=== PATIENT | female | born 1960 | race African-American/Black ===

== ENCOUNTER 2017-03-31 13:59 | Emergency (ER) | payer MEDICARE, MEDICAID ==
[~2017-03-31] VITALS: Ht 165.1 cm; Wt 81.6 kg
[2017-03-31] MEDS ORDERED: SODIUM CHLORIDE 0.9% 1,000 ML IV ONE (14:45)
[2017-03-31 15:11] LABS: Acetaminophen < 2.0 ug/mL (10-30); Anion Gap 8 (5-15); Aspartate Aminotransferase 15 U/L (15-37); BUN/Creatinine Ratio 21.5; Blood Urea Nitrogen 20 mg/dL (7-18); Calcium 9.4 mg/dL (8.5-10.1); Carbon Dioxide 24 mmol/L (21-32); Chloride 113 mmol/L (98-107); GFR African American 80 mL/min; GFR Non-African American 66 mL/min; Glucose 66 mg/dL (74-106); Potassium 3.6 mmol/L (3.5-5.1); Salicylate 6.2 mg/dL (2.8-20.0); Sodium 145 mmol/L (136-145)
[2017-03-31 15:14] LABS: Alkaline Phosphatase 59 U/L (45-117); Bilirubin, Total 0.2 mg/dL (0.2-1.0); Total Protein 7.4 g/dL (6.4-8.2)
[2017-03-31 15:17] VITALS: BP 135/62
[2017-03-31 15:25] LABS: Basophils # (auto) 0.1 uL; Basophils % (auto) 0.8 % (0.0-2.0); Eosinophils # (auto) 0.2 uL; Hematocrit 27.6 % (36.0-46.0); Hemoglobin 8.9 g/dL (12.2-16.2); Lymphocytes # (auto) 2.5 uL; Lymphocytes % (auto) 30.6 % (10.0-50.0); Mean Corpuscular Hemoglobin 24.2 pg (28.0-32.0); Mean Corpuscular Hgb Conc. 32.2 g/dL (32.0-36.0); Mean Corpuscular Volume 75.2 fL (80.0-100.0); Mean Platelet Volume 7.8 fL (6.9-10.8); Monocytes # (auto) 1.1 uL; Neutrophils # (auto) 4.3 uL; Neutrophils % (auto) 52.6 % (37.0-80.0); Nucleated Red Blood Cells % 0.1 %; Platelet Count (auto) 376 10^3/uL (140-450); Red Cell Distribution Width 19.3 % (11.8-14.3); White Blood Cell 8.2 10^3/uL (4.4-10.8)
[2017-03-31] MEDS ORDERED: ENOXAPARIN SOD 40 MG/0.4 ML SYRINGE SC ONE (15:29)
[2017-03-31] MEDS ORDERED: NITROGLYCERIN 0.4 MG SL TAB SL PRN (15:30)
[2017-03-31] MEDS ORDERED: MORPHINE SULF INJ 2 MG/ML SYRINGE 1ML IV PRN ×2 (15:30)
[2017-03-31] MEDS ORDERED: ASPirin 81 mg TAB PO ONE (15:30)
[2017-03-31] MEDS ORDERED: TEMAZEPAM 15 MG CAP PO PRN (15:30)
[2017-03-31] MEDS ORDERED: LACTULOSE 20Gm/30ML SOLN PO PRN ×2 (15:30)
[2017-03-31] MEDS ORDERED: ACETAMINOPHEN 500 MG TAB PO PRN (15:30)
[2017-03-31] MEDS ORDERED: LORazepam 0.5 MG TAB PO PRN (15:30)
[2017-03-31] MEDS ORDERED: HYDROcodone-ACET 5/325MG TAB PO PRN (15:30)
[2017-03-31] MEDS ORDERED: PROMETHAZINE HCL 25 MG/ML 1ML IV PRN (15:30)
[2017-03-31] MEDS ORDERED: HALOPERIDOL LACTATE 5 MG/ML INJ VIAL IM ONE (15:45)
[2017-03-31 16:10] LABS: Temperature: 22.7 C (20.0-25.0)
[2017-03-31 16:13] LABS: Urine Bilirubin Negative (Negative); Urine Blood Negative /uL (Negative); Urine Color Yellow (Yellow); Urine Glucose Normal (Normal); Urine Ketone Negative (Negative); Urine Nitrite Negative (Negative); Urine RBC <1 /hpf (0 - 4); Urine Squamous Epithelial Cell FEW /hpf (<5); Urine Urobilinogen Normal (Negative); Urine pH 7.5 (5.0-8.0)
[2017-03-31 17:19] LABS: Anisocytosis Slight; Platelet Estimate Adequate
[2017-03-31 17:20] LABS: Hypochromia Moderate; Microcytosis Moderate; Poikilocytosis Slight
[2017-03-31] MEDS ORDERED: SODIUM CHLOR 0.9% PF (SALINE LOCK) 10ML VIAL IV SCH (22:00)
[2017-03-31] MEDS ORDERED: ATORVASTATIN 20 MG TAB PO SCH (22:00)
[2017-04-01] MEDS ORDERED: ENOXAPARIN SOD 40 MG/0.4 ML SYRINGE SC SCH (10:00)
[2017-04-01] MEDS ORDERED: ASPirin 81 mg TAB PO SCH (10:00)
== END 2017-03-31 16:43 | disposition left against medical advice (07) ==
LOC: EDBD 13:59 → ER 13:59
DX: T43.211A Poisoning by selective serotonin and norepinephrine reuptake inhibitors, accidental (unintentional), initial encounter (principal); T42.4X1A Poisoning by benzodiazepines, accidental (unintentional), initial encounter; T43.021A Poisoning by tetracyclic antidepressants, accidental (unintentional), initial encounter; T43.591A Poisoning by other antipsychotics and neuroleptics, accidental (unintentional), initial encounter; I10 Essential (primary) hypertension; R41.82 Altered mental status, unspecified; Y92.89 Other specified places as the place of occurrence of the external cause
CPT/HCPCS: 36415; 51702; 70450; 71010; 80053; 80307; 80320; 80329; 81001; 82550; 82607; 82746; 84443; 85025; 85652; 93005; 94761; 96360; 96372; 99285; J1630; J7030

== ENCOUNTER → 2017-08-22 | Outpatient (CLI) | payer MEDICARE ==
[2017-08-22 10:25] LABS: Eosinophils # (auto) 0.1 uL; Eosinophils % (auto) 1.3 % (0.0-7.0); Hemoglobin 10.2 g/dL (12.2-16.2); Lymphocytes # (auto) 1.4 uL; Neutrophils # (auto) 2.5 uL; Nucleated Red Blood Cells % 0.1 %; White Blood Cell 4.3 10^3/uL (4.4-10.8)
[2017-08-22 10:27] LABS: Basophils # (auto) 0 uL; Basophils % (auto) 1.1 % (0.0-2.0); Hematocrit 32.9 % (36.0-46.0); Lymphocytes % (auto) 32.4 % (10.0-50.0); Mean Corpuscular Hemoglobin 22.2 pg (28.0-32.0); Mean Corpuscular Hgb Conc. 31.1 g/dL (32.0-36.0); Mean Corpuscular Volume 71.6 fL (80.0-100.0); Monocytes # (auto) 0.4 uL; Monocytes % (auto) 8.4 % (0.0-12.0); Neutrophils % (auto) 56.8 % (37.0-80.0); Platelet Count (auto) 484 10^3/uL (140-450); Red Cell Distribution Width 16.9 % (11.8-14.3)
[2017-08-22 10:37] LABS: Urine Bacteria NONE SEEN /hpf (None Seen); Urine Blood Negative /uL (Negative); Urine Mucus FEW (None Seen); Urine Specific Gravity 1.023 (1.001-1.035); Urine WBC 1 /hpf (0 - 5)
[2017-08-22 11:02] LABS: Albumin 3.9 g/dL (3.4-5.0); BUN/Creatinine Ratio 16.4; Calcium 9.3 mg/dL (8.5-10.1); Potassium 3.6 mmol/L (3.5-5.1)
[2017-08-22 11:04] LABS: Bilirubin, Total 0.4 mg/dL (0.2-1.0); Total Protein 7.5 g/dL (6.4-8.2)
[2017-08-22 11:52] LABS: Free T4 (Free Thyroxine) 0.82 ng/dL (0.89-1.76)
== END | disposition home or self-care (01) ==
LOC: LAB 09:58
PROVIDERS: ATTEND Internal Medicine
DX: D64.9 Anemia, unspecified (principal)
CPT/HCPCS: 36415; 80053; 80061; 81001; 82043; 82607; 83540; 83615; 84439; 84443; 85025

== ENCOUNTER → 2017-12-01 | Outpatient (CLI) | payer MEDICARE, MEDICAID ==
[2017-12-01 08:57] LABS: Eosinophils # (auto) 0.2 uL; Hemoglobin 9.5 g/dL (12.2-16.2)
[2017-12-01 08:58] LABS: Basophils # (auto) 0 uL; Basophils % (auto) 0.6 % (0.0-2.0); Eosinophils % (auto) 2.5 % (0.0-7.0); Hematocrit 30.7 % (36.0-46.0); Lymphocytes # (auto) 2.6 uL; Lymphocytes % (auto) 36.8 % (10.0-50.0); Mean Corpuscular Volume 67.7 fL (80.0-100.0); Monocytes # (auto) 0.7 uL; Monocytes % (auto) 10.3 % (0.0-12.0); Neutrophils # (auto) 3.6 uL; Neutrophils % (auto) 49.8 % (37.0-80.0); Nucleated Red Blood Cells % 0.2 %; Platelet Count (auto) 524 10^3/uL (140-450); Red Blood Cells 4.53 10^6/uL (4.0-5.20); Red Cell Distribution Width 18.7 % (11.8-14.3); White Blood Cell 7.2 10^3/uL (4.4-10.8)
== END | disposition home or self-care (01) ==
LOC: LAB 08:34
PROVIDERS: ATTEND Internal Medicine
DX: D64.9 Anemia, unspecified (principal); R73.01 Impaired fasting glucose; I10 Essential (primary) hypertension
CPT/HCPCS: 36415; 83036; 85025

== ENCOUNTER → 2018-06-28 | Outpatient (CLI) | payer MEDICARE, MEDICAID ==
[2018-06-28 12:58] LABS: Basophils # (auto) 0.1 uL; Eosinophils # (auto) 0.2 uL; Eosinophils % (auto) 3.7 % (0.0-7.0); Hematocrit 29.4 % (36.0-46.0); Mean Corpuscular Hemoglobin 20.7 pg (28.0-32.0)
[2018-06-28 13:01] LABS: Lymphocytes # (auto) 2.8 uL; Lymphocytes % (auto) 46.5 % (10.0-50.0); Mean Corpuscular Hgb Conc. 30.8 g/dL (32.0-36.0); Mean Corpuscular Volume 67.2 fL (80.0-100.0); Monocytes # (auto) 0.7 uL; Neutrophils # (auto) 2.3 uL; Neutrophils % (auto) 37.8 % (37.0-80.0); Platelet Count (auto) 439 10^3/uL (140-450); Red Blood Cells 4.37 10^6/uL (4.0-5.20); Red Cell Distribution Width 20.1 % (11.8-14.3); White Blood Cell 6.1 10^3/uL (4.4-10.8)
== END | disposition home or self-care (01) ==
LOC: LAB 12:38
PROVIDERS: ATTEND Internal Medicine
DX: D64.9 Anemia, unspecified (principal); I10 Essential (primary) hypertension; Z79.899 Other long term (current) drug therapy
CPT/HCPCS: 36415; 82607; 83036; 83540; 85025

== ENCOUNTER → 2018-08-11 | Day surgery (SDC) | payer MEDICARE, MEDICAID ==
[2018-08-08 12:07] LABS: Basophils # (auto) 0.1 uL; Basophils % (auto) 1.8 % (0.0-2.0); Eosinophils # (auto) 0.2 uL; Eosinophils % (auto) 3.2 % (0.0-7.0); Hematocrit 32.1 % (36.0-46.0); Hemoglobin 9.8 g/dL (12.2-16.2); Lymphocytes # (auto) 3.6 uL; Lymphocytes % (auto) 48.9 % (10.0-50.0); Mean Corpuscular Hemoglobin 20.7 pg (28.0-32.0); Mean Corpuscular Hgb Conc. 30.5 g/dL (32.0-36.0); Mean Corpuscular Volume 67.8 fL (80.0-100.0); Monocytes # (auto) 0.6 uL; Monocytes % (auto) 8.5 % (0.0-12.0); Neutrophils # (auto) 2.8 uL; Neutrophils % (auto) 37.6 % (37.0-80.0); Platelet Count (auto) 482 10^3/uL (140-450); Red Blood Cells 4.73 10^6/uL (4.0-5.20); White Blood Cell 7.4 10^3/uL (4.4-10.8)
[2018-08-08 12:08] LABS: Red Cell Distribution Width 20.9 % (11.8-14.3)
[2018-08-08 12:17] LABS: Urine Bacteria NONE SEEN /hpf (None Seen); Urine Blood Negative /uL (Negative); Urine Specific Gravity 1.023 (1.001-1.035); Urine WBC 2 /hpf (0 - 5)
[2018-08-08 12:32] LABS: INR 0.9 (0.9-1.15); Partial Thromboplastin Time 25.3 sec (23.78-33.04); Prothrombin Time 9.7 sec (9.27-12.13)
[2018-08-08 13:05] LABS: Alanine Aminotransferase 35 U/L (13-56); Albumin 4.2 g/dL (3.4-5.0); Anion Gap 7 (5-15); Blood Urea Nitrogen 15 mg/dL (7-18); Calcium 8.6 mg/dL (8.5-10.1); Carbon Dioxide 25 mmol/L (21-32); Chloride 107 mmol/L (98-107); Glucose 168 mg/dL (74-106); Potassium 3.1 mmol/L (3.5-5.1); Sodium 139 mmol/L (136-145)
[2018-08-08 13:08] LABS: Alkaline Phosphatase 94 U/L (45-117); Aspartate Aminotransferase 22 U/L (15-37); BUN/Creatinine Ratio 15.6; Bilirubin, Total 0.2 mg/dL (0.2-1.0); GFR African American > 60 mL/min; GFR Non-African American > 60 mL/min; Total Protein 7.7 g/dL (6.4-8.2)
[~2018-08-11] VITALS: Ht 160 cm; Wt 77.1 kg
[~2018-08-11] MED LIST: BUSP30TA11 PO; DULO60CA PO; GLYCOPYRROLATE 0.2 MG/ML 1ML VIAL ONE; HYDR-531 PO; HYDROmorphone HCL 2 MG/ML VL IV PRN; LIDOCAINE 1% INJ PF 5ML AMP ONE; LISI-646 PO; LORA2TAB89 PO; MELA5TAB11 PO; MIDAZOLAM HCL 1MG/1ML-2 ML VIAL ONE; MIRT45TA6 PO; NALOXONE HCL 0.4 MG/ML VIAL IV PRN; ONDANSETRON HCL 4 MG/2 ML VIAL IV ONE; PRA1C PO; PROPOFOL 10 MG/ML 20 ML IV ONE; QUET400T3 PO; [UNRECOGNIZED DRUG - CODE] PO; diphenhdrAMINE HCL 50 MG/1 ML VL ONE
== END | disposition home or self-care (01) ==
LOC: GI 09:56
PROVIDERS: ATTEND Internal Medicine Gastroenterology
DX: D64.9 Anemia, unspecified (principal); K63.89 Other specified diseases of intestine; E66.9 Obesity, unspecified; E11.9 Type 2 diabetes mellitus without complications; F31.9 Bipolar disorder, unspecified; F41.9 Anxiety disorder, unspecified; I25.10 Atherosclerotic heart disease of native coronary artery without angina pectoris; F41.0 Panic disorder [episodic paroxysmal anxiety]; I10 Essential (primary) hypertension; G47.33 Obstructive sleep apnea (adult) (pediatric); Z68.30 Body mass index [BMI] 30.0-30.9, adult; Z98.84 Bariatric surgery status
CPT/HCPCS: 36415; 43235; 45378; 80053; 81001; 85025; 85610; 85730; A6257; J1200; J2250; J2704; J7030

== ENCOUNTER → 2018-09-12 | Outpatient (CLI) | payer MEDICARE, MEDICAID ==
[~2018-09-12] MED LIST changes: -GLYCOPYRROLATE 0.2 MG/ML 1ML VIAL ONE; -HYDROmorphone HCL 2 MG/ML VL IV PRN; -LIDOCAINE 1% INJ PF 5ML AMP ONE; -MIDAZOLAM HCL 1MG/1ML-2 ML VIAL ONE; -NALOXONE HCL 0.4 MG/ML VIAL IV PRN; -ONDANSETRON HCL 4 MG/2 ML VIAL IV ONE; -PROPOFOL 10 MG/ML 20 ML IV ONE; -diphenhdrAMINE HCL 50 MG/1 ML VL ONE
[2018-09-12 16:07] LABS: Basophils # (auto) 0.1 uL; Nucleated Red Blood Cells % 0.1 %; White Blood Cell 7.2 10^3/uL (4.4-10.8)
[2018-09-12 16:11] LABS: % Iron Saturation 3.6 % (15-50); Albumin 3.7 g/dL (3.4-5.0); Calcium 8.3 mg/dL (8.5-10.1); Potassium 4.6 mmol/L (3.5-5.1)
[2018-09-12 16:12] LABS: Basophils % (auto) 1.6 % (0.0-2.0); Eosinophils # (auto) 0.3 uL; Eosinophils % (auto) 4.7 % (0.0-7.0); Hematocrit 28.1 % (36.0-46.0); Hemoglobin 8.7 g/dL (12.2-16.2); Lymphocytes # (auto) 3.4 uL; Lymphocytes % (auto) 47.8 % (10.0-50.0); Mean Corpuscular Hemoglobin 20.9 pg (28.0-32.0); Mean Corpuscular Hgb Conc. 30.8 g/dL (32.0-36.0); Mean Corpuscular Volume 67.9 fL (80.0-100.0); Monocytes # (auto) 0.7 uL; Monocytes % (auto) 9.9 % (0.0-12.0); Neutrophils # (auto) 2.6 uL; Platelet Count (auto) 364 10^3/uL (140-450); Red Blood Cells 4.14 10^6/uL (4.0-5.20)
[2018-09-12 16:14] LABS: BUN/Creatinine Ratio 18.8; Bilirubin, Total 0.1 mg/dL (0.2-1.0); Total Protein 6.8 g/dL (6.4-8.2)
[2018-09-12 16:27] LABS: Ferritin 8.6 ng/mL (10-322)
== END | disposition home or self-care (01) ==
LOC: LAB 15:45
PROVIDERS: ATTEND Internal Medicine
DX: D50.0 Iron deficiency anemia secondary to blood loss (chronic) (principal)
CPT/HCPCS: 36415; 80053; 82607; 82728; 83540; 83550; 83615; 85025

== ENCOUNTER → 2019-04-23 | Outpatient (CLI) | payer MEDICARE, MEDICAID ==
[~2019-04-23] MED LIST changes: +MIRT1TAB40 PO; -MIRT45TA6 PO
[2019-04-23 09:52] LABS: Basophils # (auto) 0.1 uL; Eosinophils # (auto) 0.3 uL; Hemoglobin 10.1 g/dL (12.2-16.2); Monocytes # (auto) 0.6 uL
[2019-04-23 09:55] LABS: Eosinophils % (auto) 3.9 % (0.0-7.0); Hematocrit 32.2 % (36.0-46.0); Mean Corpuscular Hemoglobin 22.1 pg (28.0-32.0); Mean Corpuscular Hgb Conc. 31.4 g/dL (32.0-36.0); Mean Corpuscular Volume 70.3 fL (80.0-100.0); Monocytes % (auto) 7.8 % (0.0-12.0); Neutrophils # (auto) 3.6 uL; Neutrophils % (auto) 47.3 % (37.0-80.0); Nucleated Red Blood Cells % 0.1 %; Platelet Count (auto) 485 10^3/uL (140-450); Red Blood Cells 4.58 10^6/uL (4.0-5.20); Red Cell Distribution Width 19.1 % (11.8-14.3); White Blood Cell 7.6 10^3/uL (4.4-10.8)
[2019-04-23 10:26] LABS: Folate (Folic Acid) 14.34 ng/mL (5.38-24)
== END | disposition home or self-care (01) ==
LOC: LAB 09:19
PROVIDERS: ATTEND Internal Medicine
DX: E11.9 Type 2 diabetes mellitus without complications (principal); D64.9 Anemia, unspecified; R23.2 Flushing
CPT/HCPCS: 36415; 82746; 83036; 83540; 83615; 85025

== ENCOUNTER 2019-10-18 07:01 | Day surgery (SDC) | payer MEDICARE, MEDICAID ==
[2019-10-15 16:10] LABS: Eosinophils # (auto) 0.2 10 ^3/uL (0-0.8); Eosinophils % (auto) 2.4 % (0.0-7.0); Monocytes # (auto) 0.8 10 ^3/uL (0-1.3); Neutrophils # (auto) 4.8 10 ^3/uL (1.6-8.6); Neutrophils % (auto) 54.1 % (37.0-80.0); Red Cell Distribution Width 19.8 % (11.8-14.3); White Blood Cell 8.9 10^3/uL (4.4-10.8)
[2019-10-15 16:12] LABS: Basophils # (auto) 0.1 10 ^3/uL (0-0.2); Basophils % (auto) 0.9 % (0.0-2.0); Hematocrit 29.8 % (36.0-46.0); Hemoglobin 8.8 g/dL (12.2-16.2); Mean Corpuscular Hemoglobin 19.9 pg (28.0-32.0); Mean Corpuscular Hgb Conc. 29.6 g/dL (32.0-36.0); Mean Corpuscular Volume 67.2 fL (80.0-100.0); Monocytes % (auto) 8.6 % (0.0-12.0); Platelet Count (auto) 478 10^3/uL (140-450); Red Blood Cells 4.43 10^6/uL (4.0-5.20)
[2019-10-15 16:19] LABS: Urine Bacteria FEW /hpf (None Seen); Urine Blood Negative /uL (Negative); Urine Mucus FEW (None Seen); Urine Specific Gravity 1.018 (1.001-1.035); Urine WBC 1 /hpf (0 - 5)
[2019-10-15 16:29] LABS: Albumin 3.6 g/dL (3.4-5.0); Calcium 8.4 mg/dL (8.5-10.1); INR 1.01 (0.9-1.15); Partial Thromboplastin Time 29.3 sec (23.64-32.05); Potassium 3.6 mmol/L (3.5-5.1)
[2019-10-15 16:30] LABS: BUN/Creatinine Ratio 17.9
[2019-10-15 16:33] LABS: Bilirubin, Total 0.2 mg/dL (0.2-1.0); Total Protein 7.4 g/dL (6.4-8.2)
[~2019-10-18] VITALS: Ht 160 cm; Wt 81.6 kg
[~2019-10-18 07:01] MED LIST changes: +TAPE100T24 PO; -[UNRECOGNIZED DRUG - CODE] PO
[2019-10-18] MEDS ORDERED: ceFAZolin 1GM/50ML 50 ML IV ONE (07:09)
[2019-10-18] MEDS ORDERED: LIDOCAINE 1% HCL (LOCAL ANESTH.) INJ 20ML MDV ONE (07:25)
[2019-10-18] MEDS ORDERED: SUCCINYLCHOLINE CHLORIDE 20 MG/ML 10ML VIAL IV ONE (08:36)
[2019-10-18] MEDS ORDERED: LIDOCAINE 1% (LOCAL ANESTH.) PF 5ml SDV ONE (08:38)
[2019-10-18] MEDS ORDERED: PROPOFOL 10 MG/ML 20 ML IV ONE (08:38)
[2019-10-18] MEDS ORDERED: MIDAZOLAM HCL 1MG/1ML-2 ML VIAL ONE (08:38)
[2019-10-18] MEDS ORDERED: ROCURONIUM 10MG/ML 10ML VIAL IV ONE (08:38)
[2019-10-18] MEDS ORDERED: METOCLOPRAMIDE HCL 5MG/ml INJ 2ml VIAL ONE (08:43)
[2019-10-18] MEDS ORDERED: fentaNYL CITRATE 100 MCG/2 ML VL ONE (08:58)
[2019-10-18] MEDS ORDERED: ONDANSETRON HCL 4 MG/2 ML VIAL IV PRN (09:00)
[2019-10-18] MEDS ORDERED: hydrALAZINE HCL 20 MG/ML VL IV PRN (09:00)
[2019-10-18] MEDS ORDERED: NALOXONE HCL 0.4 MG/ML VIAL IV PRN (09:00)
[2019-10-18] MEDS ORDERED: HYDROmorphone HCL 2 MG/ML VL IV PRN (09:00)
[2019-10-18] MEDS ORDERED: GLYCOPYRROLATE 0.2 MG/ML 1ML VIAL ONE (09:22)
[2019-10-18] MEDS ORDERED: NEOSTIGMINE 1 MG/ML INJ (10mg/10ML VIAL) ONE (09:22)
[2019-10-18] MEDS ORDERED: IPRATROPIUM BROM 0.5 MG/2.5ML INH SOL NEB ONE (09:45)
[2019-10-18] MEDS ORDERED: ALBUTEROL SULF 2.5 MG/0.5ML(0.5%) NEB SOLN NEB ONE (09:45)
[2019-10-18] MEDS ORDERED: IPRATROPIUM BROM 0.5 MG/2.5ML INH SOL ONE (09:50)
[2019-10-18] MEDS ORDERED: ALBUTEROL SULF 2.5 MG/0.5ML(0.5%) NEB SOLN ONE (09:50)
[2019-10-18] MEDS: HYDROmorphone HCL 2 MG/ML VL IV PRN ×4 (09:53→10:34)
--- NOTE | 2019-10-18 10:00 | NUR ---
Respiratory note: PT RECEIVED ONE TIME BREATHING TX W/O ANY ADVERSE REACTIONS.
[2019-10-18 10:40] VITALS: BP 151/86
== END 2019-10-18 10:57 | disposition home or self-care (01) ==
LOC: SUR 07:01
PROVIDERS: ATTEND Orthopaedic Surgery
DX: S52.591A Other fractures of lower end of right radius, initial encounter for closed fracture (principal); S52.611A Displaced fracture of right ulna styloid process, initial encounter for closed fracture; I10 Essential (primary) hypertension; F41.9 Anxiety disorder, unspecified; F32.9 Major depressive disorder, single episode, unspecified; G89.29 Other chronic pain; Z79.899 Other long term (current) drug therapy; Z98.84 Bariatric surgery status; Z98.890 Other specified postprocedural states; X58.XXXA Exposure to other specified factors, initial encounter; Y93.89 Activity, other specified; Y92.89 Other specified places as the place of occurrence of the external cause; Y99.8 Other external cause status
CPT/HCPCS: 25606; 25651; 36415; 73100; 80053; 81001; 85025; 85610; 85730; 94640; J0330; J0690; J1170; J2001; J2250; J2704; J2765; J3010; J7644; 76000

== ENCOUNTER → 2019-10-31 | Outpatient (CLI) | payer MEDICARE, MEDICAID ==
[2019-10-31 09:45] LABS: Urine WBC None Seen /hpf (0 - 5)
[2019-10-31 09:56] LABS: Eosinophils # (auto) 0.2 10 ^3/uL (0-0.8); Hemoglobin 8.2 g/dL (12.2-16.2); Mean Corpuscular Volume 67.1 fL (80.0-100.0)
[2019-10-31 09:58] LABS: Basophils # (auto) 0.1 10 ^3/uL (0-0.2); Basophils % (auto) 0.9 % (0.0-2.0); Eosinophils % (auto) 3.6 % (0.0-7.0); Hematocrit 26.9 % (36.0-46.0); Lymphocytes # (auto) 2.2 10 ^3/uL (0.4-5.4); Lymphocytes % (auto) 35.6 % (10.0-50.0); Mean Corpuscular Hemoglobin 20.4 pg (28.0-32.0); Mean Corpuscular Hgb Conc. 30.4 g/dL (32.0-36.0); Monocytes # (auto) 0.7 10 ^3/uL (0-1.3); Monocytes % (auto) 10.8 % (0.0-12.0); Neutrophils % (auto) 49.1 % (37.0-80.0); Platelet Count (auto) 508 10^3/uL (140-450); Red Blood Cells 4.01 10^6/uL (4.0-5.20); White Blood Cell 6.2 10^3/uL (4.4-10.8)
[2019-10-31 09:59] LABS: Red Cell Distribution Width 20.5 % (11.8-14.3)
[2019-10-31 10:05] LABS: Urine Bacteria NONE SEEN /hpf (None Seen); Urine Blood Negative /uL (Negative); Urine Specific Gravity 1.021 (1.001-1.035)
[2019-10-31 10:14] LABS: Albumin 3.6 g/dL (3.4-5.0); Calcium 8.2 mg/dL (8.5-10.1); Potassium 3.7 mmol/L (3.5-5.1)
[2019-10-31 10:18] LABS: BUN/Creatinine Ratio 15.1; Bilirubin, Total 0.3 mg/dL (0.2-1.0); Total Protein 6.9 g/dL (6.4-8.2)
[2019-10-31 10:20] LABS: Free T4 (Free Thyroxine) 0.59 ng/dL (0.89-1.76)
== END | disposition home or self-care (01) ==
LOC: LAB 08:40
PROVIDERS: ATTEND Internal Medicine
DX: E11.9 Type 2 diabetes mellitus without complications (principal); F31.70 Bipolar disorder, currently in remission, most recent episode unspecified
CPT/HCPCS: 36415; 80053; 80061; 81001; 82043; 82607; 83036; 84439; 84443; 85025; 85652

== ENCOUNTER → 2020-03-12 | Outpatient (CLI) | payer MEDICARE, MEDICAID ==
[2020-03-12 13:07] LABS: Basophils # (auto) 0.1 10 ^3/uL (0-0.2); Hemoglobin 8.6 g/dL (12.2-16.2); Monocytes # (auto) 0.9 10 ^3/uL (0-1.3)
[2020-03-12 13:10] LABS: Eosinophils # (auto) 0.4 10 ^3/uL (0-0.8); Eosinophils % (auto) 3.7 % (0.0-7.0); Hematocrit 27.8 % (36.0-46.0); Lymphocytes # (auto) 4.5 10 ^3/uL (0.4-5.4); Lymphocytes % (auto) 43.8 % (10.0-50.0); Mean Corpuscular Hemoglobin 20.4 pg (28.0-32.0); Mean Corpuscular Hgb Conc. 30.9 g/dL (32.0-36.0); Neutrophils # (auto) 4.3 10 ^3/uL (1.6-8.6); Neutrophils % (auto) 42.5 % (37.0-80.0); Platelet Count (auto) 490 10^3/uL (140-450); Red Blood Cells 4.21 10^6/uL (4.0-5.20); White Blood Cell 10.1 10^3/uL (4.4-10.8)
[2020-03-12 13:18] LABS: Red Cell Distribution Width 21.3 % (11.8-14.3)
== END | disposition home or self-care (01) ==
LOC: LAB 12:09
PROVIDERS: ATTEND Internal Medicine
DX: E11.9 Type 2 diabetes mellitus without complications (principal); M17.11 Unilateral primary osteoarthritis, right knee; D64.9 Anemia, unspecified
CPT/HCPCS: 36415; 83036; 83540; 84550; 85025

== ENCOUNTER → 2020-10-08 | Outpatient (CLI) | payer MEDICARE, MEDICAID ==
[~2020-10-08] MED LIST changes: +BUSP30TA PO; -BUSP30TA11 PO; -QUET400T3 PO; +QUET400T4 PO
[2020-10-08 10:39] LABS: Mean Corpuscular Volume 64.2 fL (80.0-100.0); Nucleated Red Blood Cells % 0.1 %
[2020-10-08 10:42] LABS: Basophils # (auto) 0 10 ^3/uL (0-0.2); Basophils % (auto) 0.7 % (0.0-2.0); Eosinophils # (auto) 0.3 10 ^3/uL (0-0.8); Eosinophils % (auto) 4.2 % (0.0-7.0); Hematocrit 28.7 % (36.0-46.0); Hemoglobin 8.9 g/dL (12.2-16.2); Lymphocytes % (auto) 49.3 % (10.0-50.0); Mean Corpuscular Hemoglobin 19.9 pg (28.0-32.0); Mean Corpuscular Hgb Conc. 30.9 g/dL (32.0-36.0); Monocytes # (auto) 0.6 10 ^3/uL (0-1.3); Monocytes % (auto) 10.5 % (0.0-12.0); Neutrophils # (auto) 2.1 10 ^3/uL (1.6-8.6); Neutrophils % (auto) 35.3 % (37.0-80.0); Platelet Count (auto) 453 10^3/uL (140-450); Red Blood Cells 4.46 10^6/uL (4.0-5.20)
[2020-10-08 11:08] LABS: % Iron Saturation 4.7 % (15-50); Albumin 4.1 g/dL (3.4-5.0); Calcium 8.8 mg/dL (8.5-10.1); Potassium 4.3 mmol/L (3.5-5.1); Uric Acid 3.6 mg/dL (2.6-6.0)
[2020-10-08 11:13] LABS: BUN/Creatinine Ratio 17.5; Bilirubin, Total 0.3 mg/dL (0.2-1.0); Total Protein 7.5 g/dL (6.4-8.2)
[2020-10-08 11:16] LABS: Urine Bacteria NONE SEEN /hpf (None Seen); Urine Blood Negative /uL (Negative); Urine Specific Gravity 1.026 (1.001-1.035); Urine WBC 1 /hpf (0 - 5)
== END | disposition home or self-care (01) ==
LOC: LAB 10:06
PROVIDERS: ATTEND Internal Medicine
DX: D64.9 Anemia, unspecified (principal); F31.70 Bipolar disorder, currently in remission, most recent episode unspecified; E11.9 Type 2 diabetes mellitus without complications
CPT/HCPCS: 36415; 80053; 80061; 81001; 82043; 82607; 83036; 83540; 83550; 83615; 84443; 84550; 85025; 85652; 86200; 86431